=== PATIENT | female | born 1980 | race Asian ===

== ENCOUNTER 2018-04-23 11:57 | Emergency (ER) | payer SELFPAY ==
[~2018-04-23] VITALS: Ht 157.5 cm; Wt 54.0 kg
[2018-04-23] MEDS ORDERED: LORAZEPAM 0.5MG TABLET PO ONE (12:30)
[2018-04-23 15:19] LABS: CLARITY URINE CLEAR (CLEAR); COLOR URINE YELLOW (YELLOW); KETONES URINE NEGATIVE (NEGATIVE); LEUKOCYTE ESTERASE URINE NEGATIVE (NEGATIVE); NITRITE URINE NEGATIVE (NEGATIVE); OCCULT BLOOD URINE TRACE (NEGATIVE); PH URINE 5.5 (4.5-8.0); PROTEIN URINE NEGATIVE (NEGATIVE); SPECIFIC GRAVITY URINE 1.013 (1.005-1.030); UROBILINOGEN URINE 0.2 E.U./dL (0.2-1.0)
[2018-04-24 16:18] VITALS: BP 108/64
== END 2018-04-24 16:23 | disposition home or self-care (01) ==
LOC: ER 11:57
DX: N89.8 Other specified noninflammatory disorders of vagina (principal); F99 Mental disorder, not otherwise specified; F41.9 Anxiety disorder, unspecified; Z59.0 Homelessness
CPT/HCPCS: 99283